=== PATIENT | female | born 2000 | race Caucasian/White ===

== ENCOUNTER → 2018-04-24 14:59 | Outpatient (REF) | payer MEDICAID, SELFPAY ==
[2018-04-26 14:08] LABS: Chlamydia Result Negative; GC Result Negative; Specimen Description URINE
== END ==
LOC: LBN 14:59
PROVIDERS: Visit Provider Nurse Practitioner Family
DX: Z11.3 Encounter for screening for infections with a predominantly sexual mode of transmission (principal)
CPT/HCPCS: 87491; 87591

== ENCOUNTER 2018-10-14 08:45 | Emergency (ER) | payer MEDICAID, SELFPAY ==
[2018-10-14 08:56] VITALS: BP 116/54; PULSE 56; RESP 16; TEMP 36.6; O2SAT 100
--- NOTE | 2018-10-14 09:02 | W.ED.GENAD ---
Discharge Plan Disposition Patient Disposition: HOME Condition: Improving Discharge Details Chief Complaint: EarProblem Clinical Impression: Impacted cerumen of left ear Primary Care Provider: None,None ED Provider: Darrin Morrell Home Meds and New Rx's Prescriptions: No Action norethindrone (contraceptive) 0.35 mg tablet 0.35 mg PO DAILY Qty: 84 RF: 2 Discharge Instructions Instructions: Cerumen Impaction (ED) Additional Instructions: Apply Debrox ear drops 5-10 drops to the left ear twice daily for 4-5 days. Return if you develop a fever, worsening pain or any other concerns. Please note you will likely have discoloring of your pillow so please use a towel at nighttime Medical Decision Making 18-year-old female with left ear pain intermittently over 1 months time. No other concerning infectious symptoms. She is afebrile and well-appearing. The left external ear canal is occluded with cerumen. This is irrigated by the nursing staff, and patient with persistent cerumen plug. We will prescribe Debrox for 4 days. She understands return HPI General Mode of arrival: ambulatory. Date/Time Provider Initiated Documentation: 10/14/18 08:47. Limitations to Documentation: no limitations. Information obtained by: patient. History of Present Illness 18 year old F presents to the emergency department with the chief complaint of Left ear pain intermittently for 1 month, described as moderate, Quality is described as aching, and is localized to the face and left. Patient reports no radiation. Patient started experiencing this day(s) and it has been intermittent. No relieving factors improve symptom(s), No exacerbating factors reported . Patient notes no other symptoms.. Patient did receive the following treatments prior to arrival, none Related Data Home Medications Medication Instructions Recorded Confirmed norethindrone (contraceptive) 0.35 0.35 mg PO DAILY #84 tab 07/23/18 10/14/18 mg tablet Previous Rx's Medication Instructions Recorded norethindrone (contraceptive) 0.35 0.35 mg PO DAILY #84 tab 07/23/18 mg tablet Allergies Allergy/AdvReac Type Severity Reaction Status Date / Time No Known Allergies Allergy Unverified 10/14/18 08:59 General Stated Complaint: EarProblem ELIESER: 4 Review of Systems Review of Systems 6 systems reviewed and otherwise negative [facility] Family History Mother No problems noted. Father No problems noted. Brother Asthma Social History Smoking/Tobacco Use Status: Never Female Reproductive History Menstrual control method: pills Exam Narrative Exam Narrative: GEN: awake, alert, oriented 3. Pleasant, well groomed, interactive. HEAD: Normocephalic, atraumatic ENT: Mucous membranes moist, oropharynx unremarkable, External ear exam unremarkable. The right tympanic membrane unremarkable, the left tympanic membrane is occluded with cerumen EYES: PERRL, EOMI NECK: Full ROM, no KODI, no menigismus CHEST/RESP: Nontender, clear to auscultation bilateral, no wheeze/rhonchi/rales CARDIOVASCULAR: RRR, no murmur, rub chino. 2+ Rad pulse bilateral ABDOMEN: Soft, nontender, no mass. +Bowel sounds EXT: Full ROM, no edema, no rash Neuro: Grossly normal neurologic exam, conversant, interactive. Psych: Speech fluent, thoughts congruent, affect normal M Course Vital Signs Temperature 36.6 C 10/14/18 08:56 Pulse 56 L 10/14/18 08:56 Respiratory Rate 16 10/14/18 08:56 Blood Pressure 116/54 L 10/14/18 08:56 Pulse Oximetry 100 10/14/18 08:56 Temperature 36.6 C 10/14/18 08:56 Temperature Source Skin 10/14/18 08:56 Pulse 56 L 10/14/18 08:56 Respiratory Rate 16 10/14/18 08:56 Respiratory Effort Non-Labored 10/14/18 08:56 Blood Pressure 116/54 L 10/14/18 08:56 Blood Pressure Position Sitting 10/14/18 08:56 Pulse Oximetry 100 10/14/18 08:56 Oxygen Delivery Method Room Air 10/14/18 08:56 Oxygen Flow Rate 0 10/14/18 08:56 Pain Level 0 10/14/18 08:56
[2018-10-14] MEDS: Carbamide Peroxide 15 ML BTL AU (10:17)
--- NOTE | 2018-10-14 10:23 | NUR.NOTE ---
Nursing Note: Carbamide peroxide drops and irrigation per Dr. Morrell order. Patient quite sensitive to ear irrigation at first, tolerated better after ear drops instilled for 20minutes. On 2nd flush, only small amount of flakes/debris rinsed from left ear. Plan to DC home with Carbamide drops to soften/expel cerumen.
== END 2018-10-14 10:22 | disposition home or self-care (01) ==
PROVIDERS: Emergency Provider Emergency Medicine
DX: H61.22 Impacted cerumen, left ear (principal)
CPT/HCPCS: 99283

== ENCOUNTER 2019-03-07 07:04 | Emergency (ER) | payer SELFPAY ==
[2019-03-07 07:09] VITALS: BP 126/88; PULSE 58; RESP 16; TEMP 36.5; O2SAT 100
[2019-03-07 08:06] LABS: Bilirubin Negative (Negative); Blood Trace-lysed (Negative); Clarity Clear; Glucose Negative (Negative); Ketones Negative (Negative); Leukocyte Esterase Negative (Negative); Nitrite Negative (Negative); Urobilinogen 0.2 EU/dL (Up TO 0.2)
[2019-03-07 08:08] LABS: HCT 40.8 % (36.0-46.0); HGB 13.9 g/dL (12.0-15.5); Mean Corp. HGB Concentration 34.1 g/dL (32.0-36.0); Mean Corpuscular Hemoglobin 29.3 pg (27.0-33.0); Mean Corpuscular Volume 85.9 fL (80-95); Mean Platelet Volume 9.5 fL (8.0-11.0); Platelet Count 283 x1000/uL (130-400); RBC 4.75 m/cumm (4.00-5.20); RBC Distribution Width 12.5 % (11.7-14.6)
--- NOTE | 2019-03-07 08:11 | W.ED.GENAD ---
Discharge Plan Disposition Patient Disposition: HOME Condition: Improving Discharge Details Chief Complaint: PsychEval Clinical Impression: Acute depression Primary Care Provider: None,None ED Provider: Darrin Morrell Home Meds and New Rx's Prescriptions: Continued NuvaRing 0.12-0.015 mg/24 hr ring 1 vag ring VG q month Qty: 3 RF: 1 Discharge Instructions Instructions: Depression (ED) Additional Instructions: Our care management team will work to get you an appointment for follow-up with [facility]. Please follow-up with [facility] today. Call [facility] acute hospital for any acute change to mood, or return for any emergent condition. Medical Decision Making 18-year-old female presents from home with worsening depression over weeks time. 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 She is had increasing use of marijuana over 18 months time, now smoking on a daily basis. She has had some benefit from counseling with behavioral health specialist in women's health. She has fleeting thoughts of harming herself by driving her car. No active thoughts of suicide. She states she does not hit or threatened at home. Vital signs are normal, screening medical examination including laboratory analysis performed. Patient medically stable for further evaluation by mental health and seen by gas systems worker. Patient agreed to plan of safety including follow-up to establish care at [facility], follow-up with [facility]. She understands return precautions and is stable for discharge at this time. She is not a danger to herself or others. Lab Data Lab results reviewed: Yes I reviewed the patient's lab results. Laboratory Results - last 24 hr 03/07/19 03/07/19 03/07/19 07:40 07:40 07:40 WBC 7.40 RBC 4.75 Hgb 13.9 Hct 40.8 MCV 85.9 MCH 29.3 MCHC 34.1 RDW 12.5 Plt Count 283 MPV 9.5 Sodium 140 Potassium 3.8 Chloride 104 Carbon Dioxide 24.5 Anion Gap 11.5 H BUN 18 Creatinine 0.91 Estimated GFR/1.73 m2 >= 60.00 Glucose 85 Calcium 9.2 Total Bilirubin 0.3 AST 18 ALT 21 Alkaline Phosphatase 66 Total Protein 8.3 H Albumin 3.8 TSH 2.13 Urine Color Yellow Urine Clarity Clear Urine pH 6.0 Ur Specific [place] 1.020 Urine Protein Negative Urine Ketones Negative Urine Blood Trace-lysed H Urine Nitrite Negative Urine Bilirubin Negative Urine Urobilinogen 0.2 Ur Leukocyte Esterase Negative Urine RBC 0-2 Urine WBC 0-2 Ur Epithelial Cells Moderate Urine Crystals Negative Urine Bacteria Moderate Urine Casts Negative Urine Mucus Trace Ur Culture Indicated? No/sq. contamination Urine Glucose Negative Urine Opiates Screen Urine Methadone Screen Ur Barbiturates Screen Ur Tricyclics Screen Ur Amphetamines Screen U Benzodiazepines Scrn Urine Cocaine Screen Ur THC Screen 03/07/19 07:40 WBC RBC Hgb Hct MCV MCH MCHC RDW Plt Count MPV Sodium Potassium Chloride Carbon Dioxide Anion Gap BUN Creatinine Estimated GFR/1.73 m2 Glucose Calcium Total Bilirubin AST ALT Alkaline Phosphatase Total Protein Albumin TSH Urine Color Urine Clarity Urine pH Ur Specific [place] Urine Protein Urine Ketones Urine Blood Urine Nitrite Urine Bilirubin Urine Urobilinogen Ur Leukocyte Esterase Urine RBC Urine WBC Ur Epithelial Cells Urine Crystals Urine Bacteria Urine Casts Urine Mucus Ur Culture Indicated? Urine Glucose Urine Opiates Screen Negative Urine Methadone Screen Negative Ur Barbiturates Screen Negative Ur Tricyclics Screen Negative Ur Amphetamines Screen Negative U Benzodiazepines Scrn Negative Urine Cocaine Screen Negative Ur THC Screen Positive HPI General Mode of arrival: ambulatory. Date/Time Provider Initiated Documentation: 03/07/19 07:35. Limitations to Documentation: no limitations. Information obtained by: patient. History of Present Illness 18 year old F presents to the emergency department with the chief complaint of Depression: Stressors include work, relations w father/boyfriend, Quality is described as constant, Patient started experiencing this day(s) and it has been constant. No relieving factors improve symptom(s), Other factors that worsen symptoms (Stressors) . Patient did receive the following treatments prior to arrival, none Related Data Home Medications Medication Instructions Recorded Confirmed etonogestrel-ethinyl estradiol 1 vag ring VG q month #3 each 01/15/19 01/15/19 0.12 mg -0.015 mg/24 hr vaginal ring Previous Rx's Medication Instructions Recorded etonogestrel-ethinyl estradiol 1 vag ring VG q month #3 each 01/15/19 0.12 mg -0.015 mg/24 hr vaginal ring Allergies Allergy/AdvReac Type Severity Reaction Status Date / Time No Known Allergies Allergy Verified 01/15/19 14:29 General Stated Complaint: PsychEval ELIESER: 2 Review of Systems Review of Systems 6 systems reviewed and otherwise negative [facility] Medical History Contraception (Acute 04/10/17) Family History Mother No problems noted. Father No problems noted. Brother Asthma Social History Smoking/Tobacco Use Status: Never Alcohol Intake: current Alcohol Intake frequency: a few times a month Drug use: Daily Substance use type: marijuana Do you feel safe at home: Yes Do you feel safe in your relationship?: Yes Female Reproductive History Menstrual control method: pills Exam Narrative Exam Narrative: GEN: awake, alert, oriented 3. Pleasant, well groomed, interactive. HEAD: Normocephalic, atraumatic ENT: Mucous membranes moist, oropharynx unremarkable, External ear exam unremarkable EYES: PERRL, EOMI NECK: Full ROM, no KODI, no menigismus CHEST/RESP: Nontender, clear to auscultation bilateral, no wheeze/rhonchi/rales CARDIOVASCULAR: RRR, no murmur, rub chino. 2+ Rad pulse bilateral ABDOMEN: Soft, nontender, no mass. +Bowel sounds EXT: Full ROM, no edema, no rash Neuro: Grossly normal neurologic exam, conversant, interactive. Psych: Speech fluent, thoughts congruent, affect flat Course Vital Signs Temperature 36.5 C 03/07/19 07:09 Pulse 58 L 03/07/19 07:09 Respiratory Rate 16 03/07/19 07:09 Blood Pressure 126/88 03/07/19 07:09 Pulse Oximetry 100 03/07/19 07:09 Temperature 36.5 C 03/07/19 07:09 Temperature Source Skin 03/07/19 07:09 Pulse 58 L 03/07/19 07:09 Respiratory Rate 16 03/07/19 07:09 Respiratory Effort Non-Labored 03/07/19 07:22 Blood Pressure 126/88 03/07/19 07:09 Pulse Oximetry 100 03/07/19 07:09 Oxygen Delivery Method Room Air 03/07/19 07:09 Oxygen Flow Rate 0 03/07/19 07:09 Lab/Test Results Lab/Test Results: Laboratory Tests Range/Units 03/07/19 03/07/19 07:40 07:40 WBC (4.4-10.8) k/cumm 7.40 RBC (4.00-5.20) m/cumm 4.75 Hgb (12.0-15.5) g/dL 13.9 Hct (36.0-46.0) % 40.8 MCV (80-95) fL 85.9 MCH (27.0-33.0) pg 29.3 MCHC (32.0-36.0) g/dL 34.1 RDW (11.7-14.6) % 12.5 Plt Count (130-400) x1000/uL 283 MPV (8.0-11.0) fL 9.5 Urine Color (Yellow) Yellow Urine Clarity Clear Urine pH (5-8) 6.0 Ur Specific [place] (1.005-1.025) 1.020 Urine Protein (Negative) mg/dL Negative Urine Ketones (Negative) mg/dL Negative Urine Blood (Negative) Trace-lysed H Urine Nitrite (Negative) Negative Urine Bilirubin (Negative) Negative Urine Urobilinogen (Up TO 0.2) EU/dL 0.2 Ur Leukocyte Esterase (Negative) Negative Urine Glucose (Negative) mg/dL Negative POC- Test(urine) Negative
--- NOTE | 2019-03-07 08:16 | ED.GENADUL_ITS ---
Discharge Plan Disposition Patient Disposition: HOME Condition: Improving Discharge Details Chief Complaint: PsychEval Clinical Impression: Acute depression Primary Care Provider: None,None ED Provider: Darrin Morrell Home Meds and New Rx's Prescriptions: Continued NuvaRing 0.12-0.015 mg/24 hr ring 1 vag ring VG q month Qty: 3 RF: 1 Discharge Instructions Instructions: Depression (ED) Additional Instructions: Our care management team will work to get you an appointment for follow-up with [facility]. Please follow-up with [facility] today. Call [facility] for any acute change to mood, or return for any emergent condition. Medical Decision Making 18-year-old female presents from home with worsening depression over weeks time. 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 She is had increasing use of marijuana over 18 months time, now smoking on a daily basis. She has had some benefit from counseling with behavioral health specialist in women's health. She has fleeting thoughts of harming herself by driving her car. No active thoughts of suicide. She states she does not hit or threatened at home. Vital signs are normal, screening medical examination including laboratory anal ysis performed. Patient medically stable for further evaluation by mental health and seen by sanitation worker. Patient agreed to plan of safety including follow-up to establish care at [facility], follow-up with [facility]. She understands return precautions and is stable for discharge at this time. She is not a danger to herself or others. Lab Data Lab results reviewed: Yes I reviewed the patient's lab results. Laboratory Results - last 24 hr 03/07/19 03/07/19 03/07/19 07:40 07:40 07:40 WBC 7.40 RBC 4.75 Hgb 13.9 Hct 40.8 MCV 85.9 MCH 29.3 MCHC 34.1 RDW 12.5 Plt Count 283 MPV 9.5 Sodium 140 Potassium 3.8 Chloride 104 Carbon Dioxide 24.5 Anion Gap 11.5 H BUN 18 Creatinine 0.91 Estimated GFR/1.73 m2 >= 60.00 Glucose 85 Calcium 9.2 Total Bilirubin 0.3 AST 18 ALT 21 Alkaline Phosphatase 66 Total Protein 8.3 H Albumin 3.8 TSH 2.13 Urine Color Yellow Urine Clarity Clear Urine pH 6.0 Ur Specific [place] 1.020 Urine Protein Negative Urine Ketones Negative Urine Blood Trace-lysed H Urine Nitrite Negative Urine Bilirubin Negative Urine Urobilinogen 0.2 Ur Leukocyte Esterase Negative Urine RBC 0-2 Urine WBC 0-2 Ur Epithelial Cells Moderate Urine Crystals Negative Urine Bacteria Moderate Urine Casts Negative Urine Mucus Trace Ur Culture Indicated? No/sq. contamination Urine Glucose Negative Urine Opiates Screen Urine Methadone Screen Ur Barbiturates Screen Ur Tricyclics Screen Ur Amphetamines Screen U Benzodiazepines Scrn Urine Cocaine Screen Ur THC Screen 03/07/19 07:40 WBC RBC Hgb Hct MCV MCH MCHC RDW Plt Count MPV Sodium Potassium Chloride Carbon Dioxide Anion Gap BUN Creatinine Estimated GFR/1.73 m2 Glucose Calcium Total Bilirubin AST ALT Alkaline Phosphatase Total Protein Albumin TSH Urine Color Urine Clarity Urine pH Ur Specific [place] Urine Protein Urine Ketones Urine Blood Urine Nitrite Urine Bilirubin Urine Urobilinogen Ur Leukocyte Esterase Urine RBC Urine WBC Ur Epithelial Cells Urine Crystals Urine Bacteria Urine Casts Urine Mucus Ur Culture Indicated? Urine Glucose Urine Opiates Screen Negative Urine Methadone Screen Negative Ur Barbiturates Screen Negative Ur Tricyclics Screen Negative Ur Amphetamines Screen Negative U Benzodiazepines Scrn Negative Urine Cocaine Screen Negative Ur THC Screen Positive HPI General Mode of arrival: ambulatory . Date/Time Provider Initiated Documentation: 03/07/19 07:35 . Limitations to Documentation: no limitations . Information obtained by: patient . History of Present Illness 18 year old F presents to the emergency department with the chief complaint of Depression: Stressors include work, relations w father/boyfriend, Quality is described as constant, Patient started experiencing this day(s) and it has been constant. No relieving factors improve symptom(s), Other factors that worsen symptoms (Stressors) . Patient did receive the following treatments prior to arrival, none Related Data Home Medications Medication Instructions Recorded Confirmed etonogestrel-ethinyl estradiol 1 vag ring VG q month #3 each 01/15/19 01/15/19 0.12 mg -0.015 mg/24 hr vaginal ring Previous Rx's Medication Instructions Recorded etonogestrel-ethinyl estradiol 1 vag ring VG q month #3 each 01/15/19 0.12 mg -0.015 mg/24 hr vaginal ring Allergies Allergy/AdvReac Type Severity Reaction Status Date / Time No Known Allergies Allergy Verified 01/15/19 14:29 General Stated Complaint: PsychEval ELIESER: 2 Review of Systems Review of Systems 6 systems reviewed and otherwise negative [facility] Medical History Contraception (Acute 04/10/17) Family History Mother No problems noted. Father No problems noted. Brother Asthma Social History Smoking/Tobacco Use Status: Never Alcohol Intake: current Alcohol Intake frequency: a few times a month Drug use: Daily Substance use type: marijuana Do you feel safe at home: Yes Do you feel safe in your relationship?: Yes Female Reproductive History Menstrual control method: pills Exam Narrative Exam Narrative: GEN: awake, alert, oriented 3. Pleasant, well groomed, interactive. HEAD: Normocephalic, atraumatic ENT: Mucous membranes moist, oropharynx unremarkable, External ear exam unremarkable EYES: PERRL, EOMI NECK: Full ROM, no KODI, no menigismus CHEST/RESP: Nontender, clear to auscultation bilateral, no wheeze/rhonchi/rales CARDIOVASCULAR: RRR, no murmur, rub chino. 2+ Rad pulse bilateral ABDOMEN: Soft, nontender, no mass. +Bowel sounds EXT: Full ROM, no edema, no rash Neuro: Grossly normal neurologic exam, conversant, interactive. Psych: Speech fluent, thoughts congruent, affect flat Course Vital Signs Temperature 36.5 C 03/07/19 07:09 Pulse 58 L 03/07/19 07:09 Respiratory Rate 16 03/07/19 07:09 Blood Pressure 126/88 03/07/19 07:09 Pulse Oximetry 100 03/07/19 07:09 Temperature 36.5 C 03/07/19 07:09 Temperature Source Skin 03/07/19 07:09 Pulse 58 L 03/07/19 07:09 Respiratory Rate 16 03/07/19 07:09 Respiratory Effort Non-Labored 03/07/19 07:22 Blood Pressure 126/88 03/07/19 07:09 Pulse Oximetry 100 03/07/19 07:09 Oxygen Delivery Method Room Air 03/07/19 07:09 Oxygen Flow Rate 0 03/07/19 07:09 Lab/Test Results Lab/Test Results: Laboratory Tests Range/Units 03/07/19 03/07/19 07:40 07:40 WBC (4.4-10.8) k/cumm 7.40 RBC (4.00-5.20) m/cumm 4.75 Hgb (12.0-15.5) g/dL 13.9 Hct (36.0-46.0) % 40.8 MCV (80-95) fL 85.9 MCH (27.0-33.0) pg 29.3 MCHC (32.0-36.0) g/dL 34.1 RDW (11.7-14.6) % 12.5 Plt Count (130-400) x1000/uL 283 MPV (8.0-11.0) fL 9.5 Urine Color (Yellow) Yellow Urine Clarity Clear Urine pH (5-8) 6.0 Ur Specific [place] (1.005-1.025) 1.020 Urine Protein (Negative) mg/dL Negative Urine Ketones (Negative) mg/dL Negative Urine Blood (Negative) Trace-lysed H Urine Nitrite (Negative) Negative Urine Bilirubin (Negative) Negative Urine Urobilinogen (Up TO 0.2) EU/dL 0.2 Ur Leukocyte Esterase (Negative) Negative Urine Glucose (Negative) mg/dL Negative POC- Test(urine) Negative
[2019-03-07 08:31] LABS: RBC 0-2 (0-2); WBC 0-2 HPF (0-5)
[2019-03-07 08:32] LABS: Bacteria Moderate HPF (Negative); C & S Indicated? No/Sq. Contamination; Casts Negative LPF (Negative); Crystals Negative HPF (Negative); Epithelial Cells Moderate HPF (Negative); Mucus Trace (Negative)
[2019-03-07 08:36] LABS: ALT 21 U/L (12-78); AST 18 U/L (15-37); Albumin 3.8 g/dL (3.4-5.0); Alkaline Phosphatase 66 U/L (46-116); Anion Gap 11.5 mmol/L (3-11); BUN 18 mg/dL (7-18); Bilirubin, Total 0.3 mg/dL (0.2-1.0); CO2 24.5 mmol/L (21.0-32.0); CREATININE 0.91 mg/dL (0.55-1.02); Calcium 9.2 mg/dL (8.5-10.1); Chloride 104 mmol/L (98-107); Glucose 85 mg/dL (70-100); Potassium 3.8 mmol/L (3.5-5.1); Sodium 140 mmol/L (136-145); TSH 2.13 uIU/mL (0.358-3.74); Total Protein 8.3 g/dL (6.4-8.2)
[2019-03-07 08:50] LABS: *AMPHETAMINES SCREEN URINE Negative (Negative); *BARBITURATES SCREEN URINE Negative (Negative); *BENZODIAZEPINES SCREEN URINE Negative (Negative); Cannabinoids THC POSITIVE (Negative); Cocaine Screen,Urine Negative (Negative); METHADONE URINE SCREEN Negative (Negative); OPIATES URINE SCREEN Negative (Negative)
[2019-03-07 08:53] LABS: Tricyclic Antidepressants Negative (Negative)
[2019-03-07 09:12] VITALS: BP 126/88; PULSE 58; RESP 16; TEMP 36.5; O2SAT 100
--- NOTE | 2019-03-07 10:06 | PDOC.MHCN ---
Date of service: 03/07/19 Time of Service: 10:06 Mental Health Crisis Note Presenting Issue How did you arrive at the ED and why did you come: Patient's father drives her to the ER due to depression and anxiety. Precipitating Factors Patient admits to intermittent suicidal ideation but denies intent or plan. She describes times when her anxiety becomes so overwhelming that she thinks she would be better off . She reports relationship issues with various family members. She names her boyfriend as a source of support but states that he at times can be very manipulative. She denies any domestic violence issues in the home. Disposition BEHAVIOR: Cooperative. EYE CONTACT: Good. MOOD: Depressed. AFFECT: Sad. APPETITE: Ok. SLEEP(trouble falling/staying asleep: Ok. Plan Patient does not meet criteria for hospitalization at this time. She, however, would benefit from outpatient services. Dipti, [facility] childcare provider, meets with patient and will assist her in connecting with a primary care physician and with [facility] as patient is currently without health insurance. I will refer patient to Gisella Geiger, [facility] embedded clinician, for short-term case management as patient would benefit from connecting with [employer] to explore employment options. Patient is somewhat ambivalent about medications and counseling but she is willing to explore medication options with a doctor as soon as she is connected with a PCP. She has also in the past seen Heather Chun at [facility] for therapy and is willing to reconnect with Heather. Patient is provided contact information for [facility] emergency services and she agrees to call as needed. Signature Clinician's Name/Title: Michelle Reddy BA, [facility] Personal Carer
--- NOTE | 2019-03-07 10:20 | PDOC.MHCN_ITS ---
Date of service: 03/07/19 Time of Service: 10:06 Mental Health Crisis Note Presenting Issue How did you arrive at the ED and why did you come: Patient's father drives her to the ER due to depression and anxiety. Precipitating Factors Patient admits to intermittent suicidal ideation but denies intent or plan. She describes times when her anxiety becomes so overwhelming that she thinks she would be better off . She reports relationship issues with various family members. She names her boyfriend as a source of support but states that he at times can be very manipulative. She denies any domestic violence issues in the home. Disposition BEHAVIOR: Cooperative. EYE CONTACT: Good. MOOD: Depressed. AFFECT: Sad. APPETITE: Ok. SLEEP(trouble falling/staying asleep: Ok. Plan Patient does not meet criteria for hospitalization at this time. She, however, would benefit from outpatient services. Dipti, [facility] resident care aide, meets with patient and will assist her in connecting with a primary care physician and with [facility] as patient is currently without health insurance. I will refer patient to Gisella Geiger, [facility] embedded clinician, for short-term case management as patient would benefit from connecting with [facility] to explore employment options. Patient is somewhat ambivalent about medications and counseling but she is willing to explore medication options with a doctor as soon as she is connected with a PCP. She has also in the past seen Heather Chun at [facility] for therapy and is willing to reconnect with Heather. Patient is provided contact information for [facility] emergency services and she agrees to call as needed. Signature Clinician's Name/Title: Michelle Reddy BA, [facility] Bakery Machine Mechanic Supervisor
[2019-03-07 10:43] VITALS: BP 127/64; PULSE 54; RESP 20; TEMP 36.3; O2SAT 99
== END 2019-03-07 10:51 | disposition home or self-care (01) ==
PROVIDERS: Emergency Provider Emergency Medicine
DX: F32.9 Major depressive disorder, single episode, unspecified (principal); R45.851 Suicidal ideations
CPT/HCPCS: 80053; 80307; 85027; 99285; 81003; 81015; 84443; 99284